=== PATIENT | male | born 1965 | race Caucasian/White ===

== ENCOUNTER → 2018-06-04 | Outpatient (CLI) | payer OTHER | LOC: RAD 12:01 | DX: R06.00 Dyspnea, unspecified (principal) ==

== ENCOUNTER → 2018-06-26 | Outpatient (CLI) | payer OTHER ==
--- NOTE | 2018-06-26 15:07 | 2DMMODE ---
[facility] [place] [place] [address] 2 D/M-MODE ECHOCARDIOGRAM Name: MARIELKRISTAL BOGDAN Room #: REG [facility]#: [id number] ������������� Admission: 06/26/18 ������������� Attend Phys: Luis M Benoit MD Discharge: ��� ������������� ��� Date of : 65 Date of Service: 06/26/18 1507 �� Report #: [id number] �������� ��������������������������������������������[id number] THIS REPORT FOR: //name// APPROVED REPORT Study performed: 06/26/2018 13:17:45 EXAM: Comprehensive 2D, Doppler, and color-flow Echocardiogram Patient Location: Out-Patient Room #: Echo lab 2 Status: routine BSA: 1.93 HR: 67 bpm BP: 138/88 mmHg Rhythm: NSR Other Information Study Quality: Good Indications Dyspnea HLP 2D Dimensions RVDd: 32.78 mm IVSd: 12.99 (7-11mm) LVOT Diam: 22.27 (18-24mm) LVDd: 42.41 mm PWd: 12.05 (7-11mm) Ascending Ao: 30.45 (22-36mm) LVDs: 27.58 (25-40mm) Aortic Root: 30.60 mm IVC: 10.00 mm Volumes Left Atrial Volume (Systole) Single Plane 4CH: 47.54 mL Single Plane 2CH: 31.85 mL LA ESV Index: 23.00 mL/m2 Aortic Valve AoV Peak Milton.: 1.30 m/s AO Peak Gr.: 6.77 mmHg LVOT Max P.08 mmHg LVOT Max V: 1.01 m/s KERRY Vmax: 3.02 cm2 Mitral Valve E/A Ratio: 1.6 MV Decel. Time: 157.[address] [facility] [place] [address] 2 D/M-MODE ECHOCARDIOGRAM Name: KRISTAL FLOYD Room #: REG [facility]#: [id number] ������������� Admission: 06/26/18 ������������� Attend Phys: Luis M Beonit MD Discharge: ��� ������������� ��� Date of : 65 Date of Service: 06/26/18 1507 �� Report #: [id number] �������� ��������������������������������������������[id number] MV E Max Milton.: 0.96 m/s MV A Milton.: 0.59 m/s MV PHT: 45.77 ms IVRT: 83.04 ms Pulmonary Valve PV Peak Milton.: 1.25 m/s PV Peak Gr.: 6.29 mmHg Pulmonary Vein P Vein S: 0.60 m/s P Vein A: 0.31 m/s P Vein D: 0.44 m/s P Vein A Dur.: 96.9 msec P Vein S/D Ratio: 1.36 Tricuspid Valve TR Peak Milton.: 2.51 m/s TR Peak Gr.: 25.25 mmHg PA Pressure: 30.00 mmHg Left Ventricle The left ventricle is normal size. There is normal LV segmental wall motion. Mild concentric left ventricular hypertrophy. Left ventricular systolic function is normal. The left ventricular ejection fraction is within the normal range. LVEF is 55-60%. Right Ventricle The right ventricle is normal size. The right ventricular systolic function is normal. Atria The left atrium size is normal. The right atrium size is normal. Aortic Valve The aortic valve is normal in structure. No aortic regurgitation is present. There is no aortic valvular stenosis. Mitral Valve The mitral valve is normal in structure. Trace mitral regurgitation. No evidence of mitral valve stenosis. Tricuspid Valve The tricuspid valve is normal in structure. There is trace tricuspid regurgitation. Estimated PAP 30 mmHg. There is no pulmonary hypertension. Pulmonic Valve [facility] [address] [place] [address] 2 D/M-MODE ECHOCARDIOGRAM Name: KRISTAL FLOYD Room #: [facility] [id number] ������������� Admission: 06/26/18 ������������� Attend Phys: Luis M Benoit MD Discharge: ��� ������������� ��� Date of : 65 Date of Service: 06/26/18 1507 �� Report #: [id number] �������� ��������������������������������������������[id number] The pulmonary valve is normal in structure. There is no pulmonic valvular regurgitation. Great Vessels The aortic root is normal in size. IVC is normal in size and collapses >50% with inspiration. Pericardium There is no pericardial effusion. <Conclusion> The left ventricle is normal size. Mild concentric left ventricular hypertrophy. Left ventricular systolic function is normal. The right ventricle is normal size. The left atrium size is normal. The right atrium size is normal. The aortic valve is normal in structure. Trace mitral regurgitation. There is trace tricuspid regurgitation. Estimated PAP 30 mmHg. ��������������������������������������������� <ELECTRONICALLY SIGNED> ���������������������������������������� By: Luis M Benoit MD ��������������������������������������������� 06/26/18 1507 1507 1507 Luis M Benoit MD /INF
--- NOTE | 2018-06-26 15:09 | EXE ---
[facility] [place] [address] STRESS ECHOCARDIOGRAM Name: MARIELKRISTAL MCFADDEN Room #: REG [facility]#: [id number] ������������� Admission: 06/26/18 ������������� Attend Phys: Luis M Benoit MD Discharge: ��� ������������� ��� Date of : 65 Date of Service: 06/26/18 1509 �� Report #: [id number] �������� ��������������������������������������������[id number] THIS REPORT FOR: //name// APPROVED REPORT Study performed: 06/26/2018 13:57:11 Exam: Stress Echocardiogram Indication: Dyspnea Patient Location: Out-Patient Stress Nurse: Ami Mcdaniel RN Room #: Echo lab 2 Status: routine Ht: 5 ft 4 in HR: 69 bpm BP: 138/88 mmHg Rhythm: NSR Medical History Medical History: Hyperlipidemia Cardiac Risk Factors: Hyperlipidemia Exercise History: Indeterminate Procedure The patient underwent an Exercise Stress Test using the Chung Protocol. Blood pressure, heart rate, and EKG were monitored. An Echocardiogram was performed by wiring technician in four stages in quad fashion. At peak stress, four selected images were obtained and placed side by side with resting images for comparison. Stress Test Details Stress Test: Exercise stress testing was performed using a Chung protocol. HR Resting HR: 69 bpm Max Heart Rate (APMHR): 167 bpm Max HR Achieved: 179 bpm Target HR (85% APMHR): 141 bpm % of APMHR: 107 Recovery HR: 95 bpm HR response to stress: Normal HR response to stress BP Resting BP: 138/88 mmHg Max BP: 194/86 mmHg Recovery BP: 170/82 mmHg BP response to stress: Normal blood pressure response to [facility] [address] [place] [address] STRESS ECHOCARDIOGRAM Name: MARIELKRISTAL Room #: REG [facility].#: [id number] ������������� Admission: 06/26/18 ������������� Attend Phys: Luis M Benoit MD Discharge: ��� ������������� ��� Date of : 65 Date of Service: 06/26/18 1509 �� Report #: [id number] �������� ��������������������������������������������[id number] stress. ECG Resting ECG: Sinus Rhythm Stress ECG: Sinus Rhythm, nonspecific ST-T abnormalities ST Change: Non-ischemic Clinical Reason for Termination: Maximal effort Stress Symptoms: Dyspnea Exercise duration: 9 min 30 sec Highest Stage Achieved: Stage 4: 4.2 mph at 16% grade. Exercise capacity: 11.8 METs Overall Exercise Capacity for Age: Normal Pre-Stress Echo The resting Echocardiogram showed normal left ventricular contractility with an estimated Ejection Fraction of about >55%. Normal wall motion in all segments on baseline images. Post-Stress Echo The stress Echocardiogram showed normal left ventricular contractility with an estimated Ejection Fraction of about >70%. Normal augmentation of wall motion in all segments on post stress images. Clinical Normal augmentation of myocardial wall segments using a 17 segment model. No clinical or ECG evidence for ischemia. Conclusion Clinical Response: Non-ischemic Exercise Capacity: Average Stress ECG Response: Non-ischemic Stress Echo Images: Non-ischemic The left ventricle is normal in size and wall thickness in both the rest and stress images. No prior study available for comparison. Other Information Study Quality: Adequate <Conclusion> [facility] [place] [place] [address] STRESS ECHOCARDIOGRAM Name: FLOYDKRISTAL Room #: REG [facility]#: [id number] ������������� Admission: 06/26/18 ������������� Attend Phys: Luis M Benoit MD Discharge: ��� ������������� ��� Date of : 65 Date of Service: 06/26/18 1509 �� Report #: [id number] �������� ��������������������������������������������[id number] The left ventricle is normal in size and wall thickness in both the rest and stress images. ��������������������������������������������� <ELECTRONICALLY SIGNED> ���������������������������������������� By: Luis M Benoit MD ��������������������������������������������� 06/26/18 1509 1509 1509 Luis M Benoit MD /INF
== END ==
LOC: CV 07:27
DX: I51.7 Cardiomegaly (principal); E78.5 Hyperlipidemia, unspecified